=== PATIENT | female | born 1995 | race Caucasian/White ===

== ENCOUNTER 2018-09-20 17:47 | Emergency (ER) | payer SELFPAY ==
--- NOTE | 2018-09-20 18:13 | ER Document Report ---
ED Medical Screen (RME) - General Chief Complaint: Abdominal Cramping Stated Complaint: CRAMPING Time Seen by Provider: 09/20/18 18:05 Mode of Arrival: Ambulatory Information source: Patient Notes: 23-year-old female presents to ED for complaint of pelvic cramping with no vaginal bleeding no vaginal discharge. She states that she had her last menstrual period about August 07 and she took 2 home pregnancies today and they were positive. She states she feels like she is cramping and get ready to start her. She is concerned because she did have a miscarriage before due to being Rh-. Patient states she has a history of PTSD and ovarian cyst. She does smoke half pack a day drinks occasionally and lives with her significant other. Patient is alert and oriented respirations regular and unlabored speaking in full sentences walks with a even steady gait. I have greeted and performed a rapid initial assessment of this patient. A comprehensive ED assessment and evaluation of the patient, analysis of test results and completion of medical decision making process will be conducted by an additional ED providers. - Related Data Allergies/Adverse Reactions: No Known Allergies Allergy (Unverified 09/20/18 17:49) Physical Exam - Vital signs Vitals: Temp Pulse Resp BP Pulse Ox 98.3 F 88 18 104/71 99 09/20/18 17:53 09/20/18 17:53 09/20/18 17:53 09/20/18 17:53 09/20/18 17:53 Course - Vital Signs Vital signs: Temp Pulse Resp BP Pulse Ox 98.3 F 88 18 104/71 99 09/20/18 17:53 09/20/18 17:53 09/20/18 17:53 09/20/18 17:53 09/20/18 17:53
[2018-09-20 18:40] LABS: ABSOLUTE BASOPHILS # (AUTO) 0.1 10^3/uL (0.0-0.2); ABSOLUTE LYMPHOCYTES (AUTO) 2.5 10^3/uL (0.5-4.7); ABSOLUTE MONOCYTES (AUTO) 0.8 10^3/uL (0.1-1.4); BASOPHILS % (AUTO) 0.5 % (0-2); EOSINOPHILS % (AUTO) 0.2 % (0-6); HEMATOCRIT 40.8 % (36.0-47.0); HEMOGLOBIN 14.2 g/dL (12.0-15.5); LYMPHOCYTES % (AUTO) 20.4 % (13-45); MEAN CORPUSCULAR HEMOGLOBIN 30.4 pg (27.0-33.4); MEAN CORPUSCULAR HGB CONC 34.7 g/dL (32.0-36.0); MEAN CORPUSCULAR VOLUME 87 fl (80-97); MONOCYTES % (AUTO) 6.5 % (3-13); PLATELET COUNT 239 10^3/uL (150-450); RED BLOOD COUNT 4.66 10^6/uL (3.72-5.28); RED CELL DISTRIBUTION WIDTH 13.8 % (11.5-14.0); SEGMENTED NEUTROPHILS % (AUTO) 72.4 % (42-78); TOTAL CELLS COUNTED % (AUTO) 100 %; WHITE BLOOD COUNT 12.4 10^3/uL (4.0-10.5)
[2018-09-20 18:44] LABS: APPEARANCE,URINE CLEAR; BILIRUBIN,URINE NEGATIVE (NEGATIVE); COLOR,URINE YELLOW; GLUCOSE, URINE NEGATIVE (NEGATIVE); KETONES,URINE 20 mg/dL (NEGATIVE); LEUKOCYTE ESTERASE,URINE NEGATIVE (NEGATIVE); NITRITE,URINE NEGATIVE (NEGATIVE); PROTEIN,URINE NEGATIVE (NEGATIVE); URINE SPECIFIC GRAVITY 1.013; UROBILINOGEN,URINE NEGATIVE mg/dL (<2.0)
[2018-09-20 18:58] LABS: ALANINE AMINOTRANSFERASE 28 U/L (9-52); ALBUMIN 4.8 g/dL (3.5-5.0); ALKALINE PHOSPHATASE 65 U/L (38-126); ANION GAP 11 (5-19); ASPARTATE AMINO TRANSFERASE 21 U/L (14-36); BILIRUBIN,DIRECT 0.2 mg/dL (0.0-0.4); BILIRUBIN,TOTAL 0.3 mg/dL (0.2-1.3); BLOOD UREA NITROGEN 7 mg/dL (7-20); CALCIUM 10.4 mg/dL (8.4-10.2); CARBON DIOXIDE 26 mmol/L (22-30); CHLORIDE 102 mmol/L (98-107); GLUCOSE 88 mg/dL (75-110); POTASSIUM 3.9 mmol/L (3.6-5.0); SODIUM 139.4 mmol/L (137-145); TOTAL PROTEIN 8.3 g/dL (6.3-8.2)
--- NOTE | 2018-09-20 22:58 | RADIOLOGY REPORT (SQ) ---
EXAM DESCRIPTION: US TRANSVAGINAL COMPLETED DATE/TME: 09/20/2018 21:12 CLINICAL HISTORY: 23 years Female, +preg cramping.pain COMPARISON: None TECHNIQUE: Transvaginal. LIMITATIONS: None. FINDINGS: There is an intrauterine gestational sac with decidual reaction and yolk sac. No pole discerned. No cardiac activity identified. Based on mean sac diameter of 0.58-cm, estimated gestational age is five weeks and two days with DAJUAN of 05/21/19. 3.2-cm right ovary, 3.3-cm left ovary, 3.1-cm cervical length, and no free fluid. IMPRESSION: Intrauterine gestational sac and yolk sac. No pole and no cardiac activity identified at this time. Differential diagnosis includes early normal viable intrauterine gestation and ongoing gestational loss. Consider 2-3 day laboratory/sonographic surveillance.
--- NOTE | 2018-09-20 23:18 | ER Document Report ---
HPI - HPI Patient complains to provider of: Lower abdominal cramping Time Seen by Provider: 09/20/18 18:05 Pain Level: Denies Context: rme Provider note: 23-year-old female presents to ED for complaint of pelvic cramping with no vaginal bleeding no vaginal discharge. She states that she had her last menstrual period about August 07 and she took 2 home pregnancies today and they were positive. She states she feels like she is cramping and get ready to start her. She is concerned because she did have a miscarriage before due to being Rh-. Patient states she has a history of PTSD and ovarian cyst. She does smoke half pack a day drinks occasionally and lives with her significant other. Patient is alert and oriented respirations regular and unlabored speaking in full sentences walks with a even steady gait. My HPI: Patient is a 23-year-old G2, P0 presents to the emergency department for a RhoGam shot. Patient is denying any vaginal bleeding or discharge. States she has some minor lower abdominal cramping, recently took a test that was positive. States she knows that she is Rh- and needs a RhoGam shot. States her PROGRAMS MANAGER told her has she got the shot earlier she would not have initially had the first miscarriage which is why she immediately presents to the emergency room. Patient is denying fever, nausea, vomiting, lower back pain, dysuria, vaginal discharge or bleeding. - REPRODUCTIVE Reproductive: REPORTS: : Past Medical History - General Information source: Patient - Social History Smoking Status: Current Every Day Smoker Family History: Reviewed & Not Pertinent Patient has suicidal ideation: No Patient has homicidal ideation: No Renal/ Medical History: Denies: Hx Peritoneal Dialysis Past Surgical History: Reports: Hx Appendectomy Vertical Provider Document - CONSTITUTIONAL Agree With Documented VS: Yes Notes: GENERAL: Alert, interacts well. No acute distress. HEAD: Normocephalic, atraumatic. EYES: Pupils equal, round, and reactive to light. Extraocular movements intact. ENT: Oral mucosa moist, tongue midline. NECK: Full range of motion. Supple. Trachea midline. LUNGS: Clear to auscultation bilaterally, no wheezes, rales, or rhonchi. No respiratory distress. HEART: Regular rate and rhythm. No murmur ABDOMEN: Soft, non-tender. Non-distended. Bowel sounds present in all 4 quadrants. No McBurney's point tenderness, no Chadwick sign noted. EXTREMITIES: Moves all 4 extremities spontaneously. No edema, normal radial and dorsalis pedis pulses bilaterally. No cyanosis. BACK: no cervical, thoracic, lumbar midline tenderness. No saddle anesthesia, normal distal neurovascular exam. NEUROLOGICAL: Alert and oriented x3. Normal speech. cranial nerves II through XII grossly intact PSYCH: Normal affect, normal mood. SKIN: Warm, dry, normal turgor. No rashes or lesions noted. Course - Re-evaluation Re-evalutation: 09/20/18 23:19 Patient is labs show slight leukocytosis of 12.4, no signs of anemia, no signs of electrolyte abnormalities. Patient's beta-hCG is 2988, urine shows no signs of infection, no blood. Ultrasound shows intrauterine gestational sac and yolk sac no pole no cardiac activity identified at this time. Patient continues without any vaginal bleeding. 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 [facility] provider had ordered a RhoGam work-up, RhoGam confirmed to be Rh- blood type and ordered. Discussed close follow-up with the health department for continued care. - Vital Signs Vital signs: Temp Pulse Resp BP Pulse Ox 98.3 F 88 18 104/71 99 09/20/18 17:53 09/20/18 17:53 09/20/18 17:53 09/20/18 17:53 09/20/18 17:53 - Laboratory Result Diagrams: 09/20/18 18:17 09/20/18 18:17 Laboratory results interpreted by me: 09/20/18 09/20/18 09/20/18 18:17 18:17 18:17 WBC 12.4 H Absolute Neutrophils 9.0 H Calcium 10.4 H Total Protein 8.3 H Beta HCG, Quant 2988.40 H Urine Ketones 20 H Discharge - Discharge Clinical Impression: Qualifiers: Weeks of gestation: less than 8 weeks Qualified Code(s): Z3A.01 - Less than 8 weeks gestation of Condition: Stable Disposition: HOME, SELF-CARE Instructions: (OM), Rhogam ([facility]) Additional Instructions: As we discussed you have been seen and treated in the emergency department for a positive test. At this point time you are too early on long to see any cardiac activity. The ultrasound does show an intrauterine gestational sac but no pole. Please make sure should you have any continued abdominal cramping, pain, start with vaginal bleeding immediately return to the emergency room as he may be have a miscarriage. Please make sure you follow-up with the health department, phone numbers to be provided in this packet. Referrals: HEALTH DEPT,[facility] [NO LOCAL MD] - Follow up as needed
[2018-09-21 00:11] VITALS: BP 106/67
== END 2018-09-21 00:19 | disposition home or self-care (01) ==
LOC: ER 17:47
DX: O46.91 Antepartum hemorrhage, unspecified, first trimester (principal); O26.891 Other specified pregnancy related conditions, first trimester; R10.30 Lower abdominal pain, unspecified; R10.2 Pelvic and perineal pain; O99.331 Smoking (tobacco) complicating pregnancy, first trimester; Z3A.01 Less than 8 weeks gestation of pregnancy
CPT/HCPCS: 99284; 96372; 86900; 86901; 36415; 86850; 84702; 85025; 80053; 81001; 76817; 93976; J2790

== ENCOUNTER 2018-11-13 12:05 | Emergency (ER) | payer MEDICAID ==
[2018-11-13] MEDS ORDERED: OXYCODONE-ACETAMINOPHEN 5-325 MG TABLET PO ONE (13:11)
[2018-11-13] MEDS ORDERED: ONDANSETRON 4 MG TAB.RAPDIS PO ONE (13:11)
--- NOTE | 2018-11-13 13:18 | ER Document Report ---
ED Medical Screen (RME) - General Chief Complaint: Vaginal Bleeding Stated Complaint: VAGINAL BLEEDING Time Seen by Provider: 11/13/18 12:56 Notes: Patient is a 23-year-old female, who presents to the emergency department for vaginal bleeding. Patient states that that she is supposed to be 13 weeks but was told around the 6-week dana that her baby did not have a heartbeat. Patient states she never had an ultrasound with a positive heartbeat. Patient has followed up with her STOCKROOM WORKER in [facility] Dr. Burgess who did perform a pelvic exam on Friday. She states that the doctor told her her cervix was opening and she would expect her to have some bleeding throughout the week. Patient states she has had chills and sweats. Patient states she was given naproxen, Zofran, Zyrtec, Flexeril. Patient states she has had nausea with vomiting as well as low back pain. Patient states she is gone through 4-5 pads this morning. Patient states that the vaginal bleeding will intermittently get worse and subside today. Patient states there have been some clots. Patient denies taking or being given Cytotec. She states she has had multiple ultrasounds since she found out she was which showed no growth or heartbeat of the fetus. Her STOCKROOM WORKER told her she would most likely passed the fetus spontaneously. TRAVEL OUTSIDE OF THE [place] IN LAST 30 DAYS: No - Related Data Allergies/Adverse Reactions: No Known Allergies Allergy (Unverified 09/20/18 17:49) Past Medical History Renal/ Medical History: Denies: Hx Peritoneal Dialysis Past Surgical History: Reports: Hx Appendectomy Physical Exam - Vital signs Vitals: Temp Pulse Resp BP Pulse Ox 98.2 F 92 18 119/76 97 11/13/18 12:11 11/13/18 12:11 11/13/18 12:11 11/13/18 12:11 11/13/18 12:11 Interpretation: Normal - Abdominal Inspection: Normal, Striae Bowel sounds: Normal Tenderness: Nontender Organomegaly: No organomegaly Course - Re-evaluation Re-evalutation: 11/13/18 13:17 We will obtain basic labs, urinalysis, and ultrasound. Patient will need a pelvic examination and physical assessment in the back. I have greeted and performed a rapid initial assessment of this patient. A comprehensive ED assessment and evaluation of the patient, analysis of test results and completion of the medical decision making process will be conducted by additional ED providers. 11/13/18 13:18 - Vital Signs Vital signs: Temp Pulse Resp BP Pulse Ox 98.2 F 92 18 119/76 97 11/13/18 12:11 11/13/18 12:11 11/13/18 12:11 11/13/18 12:11 11/13/18 12:11
[2018-11-13 14:33] LABS: APPEARANCE,URINE CLEAR; BILIRUBIN,URINE NEGATIVE (NEGATIVE); COLOR,URINE YELLOW; GLUCOSE, URINE NEGATIVE (NEGATIVE); KETONES,URINE NEGATIVE (NEGATIVE); LEUKOCYTE ESTERASE,URINE NEGATIVE (NEGATIVE); NITRITE,URINE NEGATIVE (NEGATIVE); PROTEIN,URINE NEGATIVE (NEGATIVE); URINE SPECIFIC GRAVITY 1.008; UROBILINOGEN,URINE NEGATIVE mg/dL (<2.0)
--- NOTE | 2018-11-13 15:05 | RADIOLOGY REPORT (SQ) ---
EXAM DESCRIPTION: U/S OB TRANSVAG W/DOPPLER COMPLETED DATE/TIME: 11/13/2018 2:26 pm REASON FOR STUDY: vaginal bleeding, pt. reports known miscarriage TECHNIQUE: Endovaginal static and realtime grayscale images acquired of the pelvis. Additional selec domingo spectral and color Doppler images recorded. All images stored on PACs. bHCG: Pending CLINICAL DATES: Not known Comparison imaging: Ob ultrasound 09/20/2018 LIMITATIONS: None. FINDINGS: UTERUS: The uterus measures 9.1 x 4.3 x 5.1 cm in size. Within the endometrial canal, an anechoic cystic structure is present measuring 4.7 x 2.7 by 2 cm in size. There is abnormal appearin g decidual reaction around this sac, with hypoechoic probable subchorionic hemorrhage measuring about 3.5 x 1.2 cm in size. Within the sac in the endometrium, there is no identified yolk sac or pole. This result was discussed with Raysa Duran in the emergency room. GESTATIONAL SAC: Abnormal enlarged gestational sac without yolk sac or embryo, gestational sac measur es 4.7 x 2.7 x 2 cm in size. YOLK SAC: Not identified POLE: Not identified RIGHT ADNEXA: Normal ovary with normal vascular flow. Right ovary measures 3.1 x 2.3 x 2.1 cm in siz e No adnexal free fluid. No adnexal masses. LEFT ADNEXA: Normal ovary with normal vascular flow. Left ovary 3.6 x 2.3 x 2 cm in size No adnexal free fluid. No adnexal masses. FREE FLUID: None. OTHER: No other significant finding. IMPRESSION: Abnormal likely represents a blighted ovum. Gestational trophoblastic disease is possible. Moderate size subchorionic hemorrhage. Findings discussed with the patient's attending practitioner in the emergency room. Trimester of : First - 0 to 13 weeks. TECHNICAL DOCUMENTATION: JOB ID: [id number] [employer]- All Rights Reserved COMPARISON: OB ultrasound 09/20/2018 Reading location - IP/workstation name: [email or web address]
--- NOTE | 2018-11-13 15:15 | ER Document Report ---
ED GI/ - General Chief Complaint: Vaginal Bleeding Stated Complaint: VAGINAL BLEEDING Time Seen by Provider: 11/13/18 12:56 Notes: Patient is a 23-year-old female, who presents to the emergency department for vaginal bleeding. Patient states that that she is supposed to be 13 weeks but was told around the 6-week dana that her baby did not have a heartbeat. Patient states she never had an ultrasound with a positive heartbe at. Patient has followed up with her TRADING SPECIALIST in [facility], Dr. Burgess who did perform a pelvic exam on Friday. She states that the doctor told her her cervix was opening and she would expect her to have some bleeding throughout the week. Patient states she has had chills and sweats. Patient did report vomiting earlier this week. Patient states she was given naproxen, Zofran, Zyrtec, Flexeril by her OBGYN on Friday. Patient states she has had nausea with vomiting as well as low back pain. Patient states she is gone through 4-5 pads this morning. Patient states that the vaginal bleeding will intermittently get worse and subside today. Patient states there have been some clots. Patient denies taking or being given Cytotec. She states she has had multiple ultrasounds since she found out she was which showed no growth or heartbeat of the fetus. Her TRADING SPECIALIST told her she would most likely passed the fetus spontaneously. TRAVEL OUTSIDE OF THE [place] IN LAST 30 DAYS: No - Related Data Allergies/Adverse Reactions: No Known Allergies Allergy (Unverified 09/20/18 17:49) Past Medical History - General Information source: Patient - Social History Smoking Status: Never Smoker Frequency of alcohol use: None Drug Abuse: None Lives with: Alone Family History: Reviewed & Not Pertinent Patient has suicidal ideation: No Patient has homicidal ideation: No - Past Medical History Cardiac Medical History: Reports: None Pulmonary Medical History: Reports: None EENT Medical History: Reports: None Neurological Medical History: Reports: None Endocrine Medical History: Reports: None Renal/ Medical History: Reports: None. Denies: Hx Peritoneal Dialysis Malignancy Medical History: Reports: None GI Medical History: Reports: None Musculoskeletal Medical History: Reports None Skin Medical History: Reports None Psychiatric Medical History: Reports: None Traumatic Medical History: Reports: None Infectious Medical History: Reports: None Past Surgical History: Reports: Hx Appendectomy Review of Systems - Review of Systems Constitutional: See HPI EENT: No symptoms reported Cardiovascular: No symptoms reported Respiratory: No symptoms reported Gastrointestinal: See HPI Genitourinary: See HPI Female Genitourinary: See HPI Musculoskeletal: No symptoms reported Skin: No symptoms reported Hematologic/Lymphatic: No symptoms reported Neurological/Psychological: No symptoms reported Physical Exam - Vital signs Vitals: Temp Pulse Resp BP Pulse Ox 98.2 F 92 18 119/76 97 11/13/18 12:11 11/13/18 12:11 11/13/18 12:11 11/13/18 12:11 11/13/18 12:11 Interpretation: Normal - Notes Notes: GENERAL: Well-appearing, well-nourished and in no acute distress. HEAD: Atraumatic, normocephalic. EYES: Pupils equal round and reactive to light, extraocular movements intact, sclera anicteric, conjunctiva are normal. ENT: Nares patent, oropharynx clear without exudates. Moist mucous membranes. NECK: Normal range of motion, supple without lymphadenopathy or JVD. LUNGS: Breath sounds clear to auscultation bilaterally and equal. No wheezes rales or rhonchi. HEART: Regular rate and rhythm without murmurs, rubs or gallops. ABDOMEN: Soft, suprapubic pain with palpation, normoactive bowel sounds. No guarding, no rebound. No masses appreciated. BACK: No cervical, thoracic, lumbar midline tenderness. No saddle anesthesia, normal distal neurovascular exam. GENITOURINARY: Deferred. EXTREMITIES: Normal range of motion, no pitting or edema. No clubbing or cyanosis. NEUROLOGICAL: Cranial nerves II through XII grossly intact. Normal speech, normal gait. PSYCH: Normal mood, normal affect. SKIN: Warm, Dry, normal turgor, no rashes or lesions noted. Course - Re-evaluation Re-evalutation: 11/13/18 15:14 I did assume care of the patient as she was brought back to room. Patient is resting comfortably on stretcher. Patient states that she does have intermittent cramping and vaginal bleeding. Lab work was just drawn as the results are pending. The urine was unremarkable. Will consult with TRADING SPECIALIST once the blood work and ultrasound is resulted. 11/13/18 16:25 I did speak with Dr. Alonso who is the on-call TRADING SPECIALIST. I discussed the findings of the ultrasound as well as her quant and lab work. Patient's vital signs have remained unremarkable. Dr. Alonso recommends the patient following up in the office at [facility] on Friday for a repeat ultrasound and to schedule an outpatient D&C. He also stated to offer the patient to receive Cytotec as this will help pass the products. 11/13/18 16:47 I did have a lengthy conversation with the patient regarding her options to include Cytotec and an outpatient D&C. Patient states she would like to go home with a prescription for Cytotec, she is not sure if she would like to use this method. I did educate the patient that if Cytotec was used it should cause a bleeding contraction-like pain within 4 hours. She is to expect vaginal bleeding with some clots and tissue being expelled. I told patient to report to the emergency department if she becomes dizzy, lightheaded, has a large amount of vaginal bleeding that is continuous and will not stop, runs a fever, passes out has any other concerning signs or symptoms. I will prescribe the patient Percocet as this did help with her discomfort while she was in the emergency department. I will also give the patient Toradol. I did inform the patient to stop taking the naproxen that she was prescribed. Patient has Zofran as needed for nausea at home already but I will also prescribe Phenergan as needed. 11/13/18 17:14 I did speak with Dr. Alonso to confirm dosage of the Cytotec, he states prescribe 200 mcg of Cytotec - take two tablets orally or vaginally initially. Patient may repeat dose in 4 hours if needed. Patient did receive a dose of RhoGam September 12, 2017 here at the facility as she is Rh-. Patient does have her card with her. I did inform the patient to notify [facility] of this on Friday. - Vital Signs Vital signs: Temp Pulse Resp BP Pulse Ox 98.0 F 66 16 108/65 98 11/13/18 16:26 11/13/18 16:26 11/13/18 16:26 11/13/18 16:26 11/13/18 16:26 - Laboratory Result Diagrams: 11/13/18 15:05 11/13/18 15:05 Laboratory results interpreted by me: 11/13/18 11/13/18 13:45 15:05 BUN 5 L Creatinine 0.46 L Beta HCG, Quant 2324.60 H Urine Blood MODERATE H 11/13/18 19:32 Patient did have moderate amount of blood in the urine but low red blood cells. - Diagnostic Test Radiology reviewed: Reports reviewed Procedures - Pelvic Exam Pelvic exam Time completed: 16:10 Cultures obtained: No Wet prep obtained: No Foreign body removed: No Notes: 11/13/18 16:22 Pelvic examination was performed for evaluation of bleeding. Patient tolerated well. The cervix was visualized and closed. Small amount of bleeding noted inside the vagina. Discharge - Discharge Clinical Impression: Miscarriage, Nausea Low back pain Qualifiers: Chronicity: acute Back pain laterality: bilateral Sciatica presence: without sciatica Qualified Code(s): M54.5 - Low back pain Condition: Stable Disposition: HOME, SELF-CARE Additional Instructions: Today you were seen in the emergency department for vaginal bleeding. The ultrasound did not show an on viable fetus without a heartbeat. Your quantitative HCG level was consistent with an early . Your symptoms are consistent with an impending miscarriage. I did speak with our on-call TRADING SPECIALIST Dr. Alonso who recommends following up in the [facility]. You have decided to take home a prescription for Cytotec. Cytotec is to be used only as prescribed. Taking Cytotec will cause you to bleed and clots. This can cause pain as your uterus is kamila. I have prescribed you Percocet as needed for pain, Toradol as needed for pain as this is a anti-inflammatory. Please return to the emergency department over the weekend if you develop any extreme weakness, fainting, fever, severe pain is not controlled with the medication or any other concerning signs or symptoms. Miscarriage Impending You have been evaluated for a possible miscarriage. At this time, it appears that the fetus has stopped growing. A miscarriage occurs when the fetus is abnormal. There is no medicine or treatment to prevent it. If bleeding is not severe, and if your pain can be controlled with medicine, you could complete the miscarriage at home. If that's not practical, or if the miscarriage doesn't progress spontaneously, we will arrange for a D&C procedure. You should rest in bed. Do not douche or have sex for at least a week, or until OK'd by the doctor. If you believe you've passed the fetus, collect it in a zip-lock plastic bag. Be sure to follow up with your doctor. Call the doctor or return for re- examination if there is an increase in bleeding or cramping, extreme weakness, fainting, fever, or passage of tissue. Prescriptions: Ketorolac Tromethamine [Toradol 10 mg Tablet] 10 mg PO Q6HP PRN #15 tablet PRN Reason: Misoprostol [Cytotec 0.2 mg Tablet] 200 mcg PO ASDIR PRN #4 tablet PRN Reason: Oxycodone HCl/Acetaminophen [Percocet 5-325 mg Tablet] 1 tab PO Q4H PRN #20 tablet PRN Reason: Promethazine HCl [Phenergan 25 mg Tablet] 25 mg PO TID #12 tablet Forms: Return to Work
[2018-11-13 15:26] LABS: ABSOLUTE BASOPHILS # (AUTO) 0.1 10^3/uL (0.0-0.2); ABSOLUTE EOSINOPHILS # (AUTO) 0.1 10^3/uL (0.0-0.6); ABSOLUTE LYMPHOCYTES (AUTO) 1.9 10^3/uL (0.5-4.7); ABSOLUTE MONOCYTES (AUTO) 0.7 10^3/uL (0.1-1.4); ABSOLUTE NEUT (AUTO) 5.5 10^3/uL (1.7-8.2); BASOPHILS % (AUTO) 0.8 % (0-2); EOSINOPHILS % (AUTO) 0.9 % (0-6); HEMATOCRIT 38.9 % (36.0-47.0); HEMOGLOBIN 13.3 g/dL (12.0-15.5); LYMPHOCYTES % (AUTO) 23.1 % (13-45); MEAN CORPUSCULAR HEMOGLOBIN 30.6 pg (27.0-33.4); MEAN CORPUSCULAR HGB CONC 34.2 g/dL (32.0-36.0); MEAN CORPUSCULAR VOLUME 90 fl (80-97); MONOCYTES % (AUTO) 8.3 % (3-13); PLATELET COUNT 172 10^3/uL (150-450); RED BLOOD COUNT 4.34 10^6/uL (3.72-5.28); RED CELL DISTRIBUTION WIDTH 13.8 % (11.5-14.0); SEGMENTED NEUTROPHILS % (AUTO) 66.9 % (42-78); TOTAL CELLS COUNTED % (AUTO) 100 %; WHITE BLOOD COUNT 8.2 10^3/uL (4.0-10.5)
[2018-11-13 15:44] LABS: ALANINE AMINOTRANSFERASE 24 U/L (9-52); ALBUMIN 4.2 g/dL (3.5-5.0); ALKALINE PHOSPHATASE 50 U/L (38-126); ANION GAP 9 (5-19); ASPARTATE AMINO TRANSFERASE 21 U/L (14-36); BILIRUBIN,DIRECT 0.1 mg/dL (0.0-0.4); BILIRUBIN,TOTAL 0.4 mg/dL (0.2-1.3); BLOOD UREA NITROGEN 5 mg/dL (7-20); CALCIUM 9.3 mg/dL (8.4-10.2); CARBON DIOXIDE 25 mmol/L (22-30); CHLORIDE 104 mmol/L (98-107); GLUCOSE 84 mg/dL (75-110); POTASSIUM 3.7 mmol/L (3.6-5.0); SODIUM 138.3 mmol/L (137-145); TOTAL PROTEIN 7.1 g/dL (6.3-8.2)
[2018-11-13 16:30] VITALS: BP 108/65
== END 2018-11-13 17:40 | disposition home or self-care (01) ==
LOC: ER 12:05
DX: O03.9 Complete or unspecified spontaneous abortion without complication (principal); M54.5 Low back pain; R11.2 Nausea with vomiting, unspecified
CPT/HCPCS: 99284; 36415; 84702; 85025; 80053; 81001; 76817; 93976; S0119

== ENCOUNTER 2018-11-16 12:11 | Day surgery (SDC) | payer MEDICAID ==
[2018-11-16 12:38] LABS: HEMATOCRIT 39.3 % (36.0-47.0); HEMOGLOBIN 13.6 g/dL (12.0-15.5); MEAN CORPUSCULAR HEMOGLOBIN 30.6 pg (27.0-33.4); MEAN CORPUSCULAR HGB CONC 34.5 g/dL (32.0-36.0); MEAN CORPUSCULAR VOLUME 89 fl (80-97); PLATELET COUNT 175 10^3/uL (150-450); RED BLOOD COUNT 4.43 10^6/uL (3.72-5.28); RED CELL DISTRIBUTION WIDTH 13.7 % (11.5-14.0); WHITE BLOOD COUNT 9.1 10^3/uL (4.0-10.5)
[2018-11-16] MEDS ORDERED: DIAZEPAM 5 MG TABLET ONE (12:52)
[2018-11-16] MEDS ORDERED: DOXYCYCLINE HYCLATE 100 MG in DEXTROSE 5%-WATER 250 ML IV ONE (13:30)
[2018-11-16] MEDS ORDERED: KETAMINE HCL INJ 500 MG/10 ML VIAL ONE (14:05)
[2018-11-16] MEDS ORDERED: FENTANYL CITRATE INJ/PF 100 MCG/2 ML AMPUL ONE ×2 (14:06→14:31)
[2018-11-16] MEDS ORDERED: PROPOFOL INJ 200 MG/20 ML VIAL IV ONE (14:06)
[2018-11-16] MEDS ORDERED: MISOPROSTOL 0.2 MG TABLET ONE ×2 (14:33→15:08)
[2018-11-16] MEDS ORDERED: METHYLERGONOVINE MALEATE INJ/PF 0.2 MG/1 ML AMPULE ONE (14:33)
[2018-11-16] MEDS ORDERED: MISOPROSTOL 0.1 MG TABLET ONE (14:33)
[2018-11-16] MEDS ORDERED: PROMETHAZINE HCL INJ 25 MG/1 ML VIAL IV PRN ×2 (14:49)
[2018-11-16] MEDS ORDERED: MEPERIDINE HCL/PF INJ 25 MG/1 ML DISP.SYRIN IV PRN (14:49)
[2018-11-16] MEDS ORDERED: FENTANYL CITRATE INJ/PF 100 MCG/2 ML AMPUL IV PRN ×3 (14:49)
[2018-11-16] MEDS ORDERED: DIPHENHYDRAMINE HCL 50 MG/ML VIAL IV PRN (14:49)
[2018-11-16] MEDS ORDERED: KETOROLAC TROMETHAMINE INJ/PF 30 MG/1 ML SDV ONE (15:00)
[2018-11-16] MEDS: FENTANYL CITRATE INJ/PF 100 MCG/2 ML AMPUL ONE ×2 (15:01→15:06)
--- NOTE | 2018-11-16 15:02 | Operative Report ---
Operative Report DATE OF SURGERY: 11/16/18 PREOPERATIVE DIAGNOSIS: 1. Incomplete at 8 weeks. 2. Rh Negative POSTOPERATIVE DIAGNOSIS: Same OPERATION: Suction dilatation and curettage SURGEON: RADHA JARRETT TISSUE REMOVED OR ALTERED: Products of conception COMPLICATIONS: None ESTIMATED BLOOD LOSS: 175 ml INTRAOPERATIVE FINDINGS: Uterus sounded 12 cm; large amounts of products of suction evacuated; used 10 mm curved Icelandic curette PROCEDURE: After appropriate consents had been obtained, the patient was taken to the Operating Room where general anesthesia was placed without difficulty. She was prepped and draped in the normal sterile fashion in the dorsal lithotomy position. Exam under anesthesia was performed with a 12 week sized uterus and no adnexal pathology palpable. Straight catheter urine was obtained and approximately 30 mL of urine. A speculum was placed in the vagina. The ante rior lip the cervix was grasped with a single-tooth tenaculum. The uterus sounded to 12 cm. Sequential dilators were then used to dilate the cervix to a size 24. Size 10 mm suction catheter was introduced and products of conception were removed. The suction catheter was removed and gentle curettage was then undertaken throughout the cavity. The suction catheter was introduced once again and additional products of conception and blood clots were removed. The curette was once again introduced and the cavity was felt to be empty of further tissue. All instruments were then removed. The uterus was hemostatic. Sponge and instrument counts were correct x 2. Patient given Cytotec 800 mcg per rectum at the end of the procedure. Patient tolerated the procedure well and was transferred to recovery in stable condition.
[2018-11-16] MEDS ORDERED: ONDANSETRON HCL INJ/PF 4 MG/2 ML SDV ONE (15:32)
[2018-11-16] MEDS ORDERED: OXYCODONE-ACETAMINOPHEN 5-325 MG TABLET ONE (15:44)
[2018-11-16] MEDS ORDERED: ONDANSETRON HCL INJ/PF 4 MG/2 ML SDV IV ONE (15:45)
[2018-11-16] MEDS ORDERED: OXYCODONE-ACETAMINOPHEN 5-325 MG TABLET PO ONE (16:00)
[2018-11-16 17:07] VITALS: BP 95/72
== END 2018-11-16 16:40 | disposition home or self-care (01) ==
LOC: OROUT 12:11
PROVIDERS: ATTEND Obstetrics & Gynecology
DX: O02.1 Missed abortion (principal); F17.210 Nicotine dependence, cigarettes, uncomplicated; Z67.91 Unspecified blood type, Rh negative
CPT/HCPCS: 36415; 85027; 88305 ×2; 01965; 59820; J3490 ×3; J3010; J1885; J2405; J7060; J2704; 1965; J2210

== ENCOUNTER 2019-03-24 15:42 | Emergency (ER) | payer MEDICAID ==
[2019-03-24] MEDS ORDERED: ONDANSETRON 4 MG TAB.RAPDIS PO ONE (16:40)
--- NOTE | 2019-03-24 16:40 | ER Document Report ---
ED Medical Screen (RME) - General Chief Complaint: Ear Pain Stated Complaint: EAR ACHE Time Seen by Provider: 03/24/19 16:34 Mode of Arrival: Ambulatory Information source: Patient Notes: 23-year-old female with history of otitis externa presents emergency department with complaints of tenderness pain to her right ear mastoid area. Was recently treated with a ear wick eardrops Septra and Lortab for otitis externa and cellulitis on Friday. She reports she is been vomiting now with fever and increased pain. She called her ENT and was told to come the emergency department. Reports she is had at least 3 ear infections since October. I have greeted and performed a rapid initial assessment of this patient. A comprehensive ED assessment and evaluation of the patient, analysis of test r esults and completion of the medical decision making process will be conducted by additional ED providers. Dictation of this chart was performed using voice recognition software; therefore, there may be some unintended grammatical errors. TRAVEL OUTSIDE OF THE [place] IN LAST 30 DAYS: No - Related Data Allergies/Adverse Reactions: No Known Allergies Allergy (Unverified 09/20/18 17:49) Past Medical History - Past Medical History Cardiac Medical History: Denies: Hx Coronary Artery Disease, Hx Heart Attack, Hx Hypertension Pulmonary Medical History: Denies: Hx Asthma, Hx Bronchitis, Hx COPD, Hx Pneumonia Neurological Medical History: Denies: Hx Cerebrovascular Accident, Hx Seizures Renal/ Medical History: Denies: Hx Peritoneal Dialysis Musculoskeltal Medical History: Denies Hx Arthritis Past Surgical History: Reports: Hx Appendectomy - Immunizations Hx Diphtheria, Pertussis, Tetanus Vaccination: No Physical Exam - Vital signs Vitals: Temp Pulse Resp BP Pulse Ox 97.7 F 77 16 110/70 99 03/24/19 15:45 03/24/19 15:45 03/24/19 15:45 03/24/19 15:45 03/24/19 15:45 Course - Vital Signs Vital signs: Temp Pulse Resp BP Pulse Ox 97.7 F 77 16 110/70 99 03/24/19 15:45 03/24/19 15:45 03/24/19 15:45 03/24/19 15:45 03/24/19 15:45
[2019-03-24 17:12] LABS: ABSOLUTE LYMPHOCYTES (AUTO) 1.1 10^3/uL (0.5-4.7); ABSOLUTE MONOCYTES (AUTO) 0.7 10^3/uL (0.1-1.4); ABSOLUTE NEUT (AUTO) 6.5 10^3/uL (1.7-8.2); BASOPHILS % (AUTO) 0.4 % (0-2); EOSINOPHILS % (AUTO) 0.4 % (0-6); HEMATOCRIT 42.1 % (36.0-47.0); HEMOGLOBIN 14.5 g/dL (12.0-15.5); LYMPHOCYTES % (AUTO) 12.9 % (13-45); MEAN CORPUSCULAR HEMOGLOBIN 30.6 pg (27.0-33.4); MEAN CORPUSCULAR HGB CONC 34.5 g/dL (32.0-36.0); MEAN CORPUSCULAR VOLUME 89 fl (80-97); PLATELET COUNT 219 10^3/uL (150-450); RED BLOOD COUNT 4.75 10^6/uL (3.72-5.28); RED CELL DISTRIBUTION WIDTH 13.2 % (11.5-14.0); SEGMENTED NEUTROPHILS % (AUTO) 78.3 % (42-78); TOTAL CELLS COUNTED % (AUTO) 100 %; WHITE BLOOD COUNT 8.3 10^3/uL (4.0-10.5)
[2019-03-24 17:32] LABS: ALBUMIN 4.6 g/dL (3.5-5.0); ALKALINE PHOSPHATASE 74 U/L (38-126); ANION GAP 13 (5-19); ASPARTATE AMINO TRANSFERASE 16 U/L (14-36); BILIRUBIN,DIRECT 0.2 mg/dL (0.0-0.4); BILIRUBIN,TOTAL 0.6 mg/dL (0.2-1.3); BLOOD UREA NITROGEN 8 mg/dL (7-20); CALCIUM 9.9 mg/dL (8.4-10.2); CARBON DIOXIDE 24 mmol/L (22-30); CHLORIDE 102 mmol/L (98-107); GLUCOSE 93 mg/dL (75-110); POTASSIUM 4.2 mmol/L (3.6-5.0); TOTAL PROTEIN 8.2 g/dL (6.3-8.2)
--- NOTE | 2019-03-24 18:42 | RADIOLOGY REPORT (SQ) ---
EXAM DESCRIPTION: CT FACIAL AREA WITH COMPLETED DATE/TIME: 03/24/2019 6:10 pm REASON FOR STUDY: RIGHT EAR MASTOID TTP, SWELLING COMPARISON: None. TECHNIQUE: Post contrast images through the facial bones and orbits windowed for bone and soft tissu e. Additional coronal and sagittal reconstructed images reviewed. All images stored on PACS. All CT scanners at this facility use dose modulation, iterative reconstruction, and/or weight based d osing when appropriate to reduce radiation dose to as low as reasonably achievable (ALARA). [facility]: Dose Right [facility]: CareDose [facility]: Dose Right [facility]: Teradose 4D [facility]: [employer] CONTRAST TYPE AND DOSE: contrast/concentration: Isovue 350.00 mg/ml; Total Contrast Delivered: 50.0 ml; Total Saline Delivered: 50.0 ml RENAL FUNCTION: None required. The patient is less than 50 years old. RADIATION DOSE: CT Rad equipment meets quality standard of care and radiation dose reduction techniq ues were employed. CTDIvol: 30.4 mGy. DLP: 570 mGy-cm. . LIMITATIONS: None. FINDINGS: FACIAL BONES: No fracture or bone lesion. ORBITS: Intact. No fracture. Symmetric intact globes and retroorbital soft tissues. PARANASAL SINUSES: Minimal mucosal thickening. No fluid level. No nasal polyps. Maxillary sinus outl ets are patent. SOFT TISSUES: Indurated tissue in the region of the right external auditory canal with some fluid not ed in the external part of the right middle ear. No rim enhancing abscess identified. INFERIOR BRAIN: Limited view. No acute findings. OTHER: No mastoid effusion. IMPRESSION: Indurated tissue in the region of the right external auditory canal with some fluid note d in the external part of the right middle ear. No rim enhancing abscess identified. No mastoid eff usion. TECHNICAL DOCUMENTATION: JOB ID: [id number] [id number] Quality ID # [id number]: Final reports with documentation of one or more dose reduction techniques (e.g., Au tomated exposure control, adjustment of the mA and/or kV according to patient size, use of iterative reconstruction technique) 2010 [employer]- All Rights Reserved Reading location - IP/workstation name: [email or web address]
--- NOTE | 2019-03-24 20:18 | ER Document Report ---
ED ENT - General Chief Complaint: Ear Pain Stated Complaint: EAR ACHE Time Seen by Provider: 03/24/19 20:18 Mode of Arrival: Ambulatory Information source: Patient, Friend Notes: HISTORY OF PRESENT ILLNESS: Patient is a 23-year-old female with a past medical history of recurrent and chronic otitis externa beginning 5 months ago status post several rounds of antibiotics and other treatments who presents with recurrent symptoms with headache. Patient reports that she first got her symptoms approximately 5 months ago after giving with a D&C for retained products, she has seen ENT who has placed her on several different antibiotic regimens. She reports she still has drainage and pain from her right ear with slight swelling and now has a headache. Location: Right ear Onset: This episode several days ago, overall 5 months ago Provocation: Chewing, movement Quality: Aching Radiation: None Severity: Moderate Timing: Constant History of headaches: Yes Recent head injury: None Vision changes: None Trouble walking: None Associated symptoms: Denies fevers or chills, no vision changes, no ataxia, no neck pain/stiffness REVIEW OF SYSTEMS: CONSTITUTIONAL : Denies fever or chills, no sweats. Denies recent illness. EENT: Positive for right ear pain and swelling. Negative for nasal or sinus congestion. CARDIOVASCULAR: Denies chest pain. RESPIRATORY: Denies cough, cold, or chest congestion. Denies shortness of breath, difficulty breathing, or wheezing. GASTROINTESTINAL: Denies abdominal pain. Denies nausea, vomiting, or diarrhea. Denies constipation. GENITOURINARY: Denies difficulty urinating, painful urination, burning, frequency, or blood in urine. FEMALE GENITOURINARY: Denies vaginal bleeding, abnormal or irregular periods. MUSCULOSKELETAL: Denies body aches. Denies neck or back pain or joint pain or swelling. SKIN: Denies rash or skin lesions. HEMATOLOGIC : Denies easy bruising or bleeding. LYMPHATIC: Denies swollen, enlarged glands. NEUROLOGICAL: Positive for headaches. Denies altered mental status or loss of consciousness. Denies weakness or paralysis or loss of use of either side. Denies problems with gait or speech. Denies sensory or motor loss. PSYCHIATRIC: Denies anxiety or stress or depression. All other systems reviewed and negative. PHYSICAL EXAMINATION: GENERAL: Well-appearing, well-nourished and in no acute distress. HEAD: Atraumatic, normocephalic. No scalp deformity, depression, or crepitance. EYES: Pupils are 3 mm and equal/round/reactive to light, extraocular movements intact, sclera anicteric, conjunctiva are normal. ENT: Right external auditory canal has significant edema with drainage, tympanic membranes cannot be visualized. Left tympanic membranes normal. Nares patent bilaterally, oropharynx clear without exudates or palatal petechia. Moist mucous membranes. No tonsil hypertrophy. NECK: Normal range of motion, supple without lymphadenopathy. LUNGS: Breath sounds present, equal, and clear to auscultation bilaterally. No wheezes, rales, or rhonchi. HEART: Regular rate and rhythm without murmurs, rubs, or gallops. 2+ peripheral pulses. Normal capillary refill. ABDOMEN: Soft, nontender, nondistended. Normoactive bowel sounds. No guarding, no rebound. No masses appreciated. BACK: Normal contour, no midline tenderness. Rectal exam deferred. GENITAL/PELVC: Deferred. EXTREMITIES: Normal range of motion, no pitting or edema. No cyanosis. NEUROLOGICAL: No focal neurological deficits. Cranial nerves III-XII grossly intact. Moves all extremities spontaneously and on command. PSYCH: Normal mood, normal affect. No suicidal thoughts/ideations. No homicidal thoughts/ideations. No hallucinations. SKIN: Warm, dry, normal turgor, no rashes or lesions noted. ASSESSMENT AND PLAN: This patient is a 23-year-old female who presents with recurrent otitis externa in the right ear. Patient has no history of diabetes or other complications to suggest other comorbidities. Possibility of mastoiditis. 1. Will obtain labs, CT scan of the facial bones to include the skull, give IV ciprofloxacin along with Toradol. 2. Will reassess. TRAVEL OUTSIDE OF THE [place] IN LAST 30 DAYS: No - HPI Patient complains to provider of: Ear problem Onset: Other - "5 months ago" Onset/Duration: Gradual, Intermittent, Persistent Quality of pain: Achy, Sharp Severity: Moderate Pain Level: 2 Location of pain: Ears Associated symptoms: Ear pain, Ear drainage Similar symptoms previously: Yes Recently seen / treated by doctor: Yes - Related Data Allergies/Adverse Reactions: No Known Allergies Allergy (Unverified 09/20/18 17:49) Past Medical History - General Information source: Patient, Friend - Social History Smoking Status: Never Smoker Chew tobacco use (# tins/day): No Frequency of alcohol use: None Drug Abuse: None Lives with: Family Family History: Reviewed & Not Pertinent Patient has suicidal ideation: No Patient has homicidal ideation: No - Past Medical History Cardiac Medical History: Reports: None Denies: Hx Coronary Artery Disease, Hx Heart Attack, Hx Hypertension Pulmonary Medical History: Reports: None Denies: Hx Asthma, Hx Bronchitis, Hx COPD, Hx Pneumonia EENT Medical History: Reports: Other - History of otitis externa Neurological Medical History: Reports: None. Denies: Hx Cerebrovascular Accident, Hx Seizures Endocrine Medical History: Reports: None Renal/ Medical History: Reports: None. Denies: Hx Peritoneal Dialysis Malignancy Medical History: Reports: None GI Medical History: Reports: None Musculoskeletal Medical History: Reports None, Denies Hx Arthritis Skin Medical History: Reports None Psychiatric Medical History: Reports: None Traumatic Medical History: Reports: None Infectious Medical History: Reports: None Past Surgical History: Reports: Hx Appendectomy, Hx Gynecologic Surgery - d/c - Immunizations Immunizations up to date: Yes Hx Diphtheria, Pertussis, Tetanus Vaccination: No Review of Systems - Review of Systems Constitutional: No symptoms reported EENT: See HPI, Eye pain, Eye discharge Cardiovascular: No symptoms reported Respiratory: No symptoms reported Gastrointestinal: No symptoms reported Genitourinary: No symptoms reported Female Genitourinary: No symptoms reported Musculoskeletal: No symptoms reported Skin: No symptoms reported Hematologic/Lymphatic: No symptoms reported Neurological/Psychological: No symptoms reported -: Yes All other systems reviewed and negative Physical Exam - Vital signs Vitals: Temp Pulse Resp BP Pulse Ox 97.7 F 77 16 110/70 99 03/24/19 15:45 03/24/19 15:45 03/24/19 15:45 03/24/19 15:45 03/24/19 15:45 Interpretation: Normal Course - Re-evaluation Re-evalutation: 03/24/19 23:18 CT scan reveals no evidence of mastoiditis or erosive bone lesions, consistent with known otitis externa as seen on exam. Will discharge the patient home with strict return precautions and follow-up with ENT. All results were explained to and discussed with the patient, and all questions addressed and answered. The patient voices both understanding and agreeing with the plan. - Vital Signs Vital signs: Temp Pulse Resp BP Pulse Ox 98.5 F 69 16 108/61 98 10/30/19 23:46 03/24/19 23:46 03/24/19 23:46 03/24/19 23:46 03/24/19 23:46 - Laboratory Result Diagrams: 03/24/19 16:48 03/24/19 16:48 Laboratory results interpreted by me: 03/24/19 16:48 Lymph % (Auto) 12.9 L Seg Neutrophils % 78.3 H Discharge - Discharge Clinical Impression: Malignant otitis externa Qualifiers: Chronicity: chronic Laterality: right Qualified Code(s): H60.21 - Malignant otitis externa, right ear Condition: Good Disposition: HOME, SELF-CARE Instructions: Otitis Externa ([facility]) Additional Instructions: You have been evaluated in the Emergency Department for an ear infection in your right ear. While here, you had a CAT scan of your head that revealed no evidenc e of infection outside of your external ear and it is now safe to be discharged home. Please follow-up with your ENT as instructed in one week to be rechecked. Return to the Emergency Department if you experience worsening pain, high fevers, increased swelling of the face, confusion, disorientation, difficulty walking, or any other concerning symptoms. Prescriptions: Ciprofloxacin HCl [Cipro 500 mg Tablet] 500 mg PO BID #20 tablet Diclofenac Sodium 75 mg PO BID #30 tablet. Print Language: Armenian
[2019-03-24] MEDS ORDERED: KETOROLAC TROMETHAMINE INJ/PF 30 MG/1 ML SDV IV ONE (21:16)
[2019-03-24] MEDS ORDERED: CIPROFLOXACIN 400 MG/D5W RTU 400 MG/200 ML RTUPB IV SCH (22:00)
[2019-03-24 23:48] VITALS: BP 108/61
== END 2019-03-24 23:47 | disposition home or self-care (01) ==
LOC: ER 15:42
DX: H60.21 Malignant otitis externa, right ear (principal); R51 Headache; H92.01 Otalgia, right ear
CPT/HCPCS: 36415; 84703; 85025; 80053; 70487; S0119; J1885; J0744